=== PATIENT | female | born 1940 | race Caucasian/White ===

== ENCOUNTER 2021-03-05 09:28 | Inpatient (IN) | payer MEDICARE, MEDICAID ==
[~2021-03-05] VITALS: Ht 160 cm; Wt 47.7 kg
--- NOTE | 2021-03-05 10:00 | NUR ---
Note luke in EDM - 03/05/21 at 1055 by JAMES pt's wrist where vancomycin is running in is red and hot to touch. iv line flushed with NS. md and pharmacist informed. will run vanco in at a slower rate per pharmacy.
--- NOTE | 2021-03-05 10:15 | NUR ---
dr. guzman at bedside
[2021-03-05 10:26] LABS: CLARITY,URINE CLEAR (Clear); COLOR,URINE YELLOW (Yellow); GLUCOSE, URINE NEGATIVE (Neg); KETONES,URINE NEGATIVE (Neg); LEUKOCYTE ESTERASE ,URINE NEGATIVE (Neg); NITRITES, URINE NEGATIVE (Neg); OCCULT BLOOD,URINE NEGATIVE (Neg); PROTEIN,URINE NEGATIVE (Neg)
[2021-03-05 10:29] LABS: UA COLLECTION TYPE STRAIGHT CATH
--- NOTE | 2021-03-05 10:55 | NUR ---
pt to ct
--- NOTE | 2021-03-05 11:10 | NUR ---
returned from ct without incident
[2021-03-05 11:24] LABS: BASOPHILS % (AUTO) 0.4 % (0-1); EOSINOPHILS # (AUTO) 0.1 X10'3 (0-0.9); HEMATOCRIT 37.1 % (35.0-45.0); HEMOGLOBIN 12.7 g/dl (12.0-16.0); LYMPHOCYTES # (AUTO) 0.9 X10'3 (1.1-4.8); LYMPHOCYTES % (AUTO) 14.7 % (21-51); MEAN CORPUSCULAR HEMOGLOBIN 32.3 PG (27.0-31.0); MEAN CORPUSCULAR HGB CONC 34.4 g/dL (33.0-36.5); MEAN CORPUSCULAR VOLUME 93.8 FL (78-98); MEAN PLATELET VOLUME 8.2 FL (7.4-10.4); MONOCYTES # (AUTO) 0.5 X10'3 (0-0.9); MONOCYTES % (AUTO) 8.2 % (2-12); NEUTROPHILS # (AUTO) 4.6 X10'3 (1.8-7.7); NEUTROPHILS % (AUTO) 75.7 % (42-75); PLATELET COUNT 186 X10'3 (140-440); RED BLOOD COUNT 3.95 X10'6 (4.20-5.60); RED CELL DISTRIBUTION WIDTH 14.2 % (11.5-14.5)
--- NOTE | 2021-03-05 11:30 | NUR ---
pt moved to er bed 4 to be in direct view of nurses station. pt attempting to get out of bed.
[2021-03-05 11:38] LABS: ALANINE AMINOTRANSFERASE 42 U/L (12-78); ALBUMIN 3.7 G/DL (3.4-5.0); ALKALINE PHOSPHATASE 59 IU/L (46-116); ANION GAP 10 (8-16); ASPARTATE AMINO TRANSFERASE 36 U/L (10-37); BILIRUBIN,TOTAL 0.5 MG/DL (0.1-1.0); BLOOD UREA NITROGEN 23 MG/DL (7-18); BUN/CREATININE RATIO 30.7 (6.6-38.0); CALCIUM 9.2 MG/DL (8.5-10.1); CHLORIDE 107 MMOL/L (99-107); CREATININE 0.75 MG/DL (0.40-0.90); GLUCOSE 87 MG/DL (70-104); POTASSIUM 4.1 MMOL/L (3.5-5.1); SODIUM 144 MMOL/L (135-145); TOTAL CARBON DIOXIDE 27.1 MMOL/L (24-32); TOTAL PROTEIN 7.3 G/DL (6.4-8.2); eGFR 75 ML/MIN
[2021-03-05] MEDS ORDERED: haloperidol lactate 5mg/ml inj IM ONE (12:05)
--- NOTE | 2021-03-05 12:15 | NUR ---
pt re-oriented mult times, provided with warm blankets, repositioned for comfort.
[2021-03-05] MEDS: normal saline 1000ml 1,000 ML IV SCH (12:45)
[2021-03-05] MEDS ORDERED: ondansetron/PF 4mg/2ml inj IV PRN (12:45)
[2021-03-05] MEDS ORDERED: acetaminophen 325mg tablet PO PRN ×2 (12:45)
[2021-03-05] MEDS ORDERED: HYDROcodone/acetaminophen 5mg/325mg tablet PO PRN (12:55)
[2021-03-05] MEDS ORDERED: morphine 2 MG/ML inj. syringe IV PRN (12:55)
[2021-03-05] MEDS ORDERED: LOSA50TA64 PO (13:12)
[2021-03-05] MEDS ORDERED: DIVA125C2 PO (13:12)
[2021-03-05] MEDS ORDERED: TRAZ-256 PO (13:12)
[2021-03-05] MEDS ORDERED: OMEP20TA23 PO (13:12)
[2021-03-05] MEDS ORDERED: ATOR40TA14 PO (13:12)
[2021-03-05] MEDS ORDERED: FLUO40CA10 PO (13:12)
--- NOTE | 2021-03-05 14:28 | NUR ---
husbands phone number [phone]
--- NOTE | 2021-03-05 14:29 | NUR ---
Return page, spoke with nurse, states patient needs placement, explained there are no [facility] beds open this weekend, if patient requires LTC then there are also no beds available, patient will have to be placed out of area, patient has been admitted, will work with on discharge plan
[2021-03-05] MEDS: traZODone 50mg tablet PO SCH (17:55)
[2021-03-05] MEDS: heparin, porcine 5000 units/ml vial SQ SCH (20:00)
[2021-03-05] MEDS: divalproex sod 125mg sprinkle cap PO SCH (20:00)
[2021-03-05] MEDS ORDERED: traZODone 50mg tablet PO SCH (21:00)
[2021-03-06 09:21] LABS: BASOPHILS % (AUTO) 0.2 % (0-1); EOSINOPHILS % (AUTO) 0.4 % (0-6); HEMOGLOBIN 12.2 g/dl (12.0-16.0); LYMPHOCYTES # (AUTO) 1.6 X10'3 (1.1-4.8); LYMPHOCYTES % (AUTO) 29.1 % (21-51); MEAN CORPUSCULAR HGB CONC 33.8 g/dL (33.0-36.5); MEAN CORPUSCULAR VOLUME 94.7 FL (78-98); MEAN PLATELET VOLUME 8.4 FL (7.4-10.4); MONOCYTES # (AUTO) 0.5 X10'3 (0-0.9); MONOCYTES % (AUTO) 9.2 % (2-12); NEUTROPHILS # (AUTO) 3.3 X10'3 (1.8-7.7); NEUTROPHILS % (AUTO) 61.1 % (42-75); PLATELET COUNT 199 X10'3 (140-440); WHITE BLOOD COUNT 5.4 X10'3 (4.5-11.0)
--- NOTE | 2021-03-06 09:26 | NUR ---
there is no updtaed list for the hospitalist ,can not report the critical positive lab result to the hospitalist who has pt .
[2021-03-06 09:31] LABS: ALANINE AMINOTRANSFERASE 38 U/L (12-78); ALBUMIN 3.6 G/DL (3.4-5.0); ALBUMIN/GLOBULIN RATIO 1.1 (1.1-1.5); ALKALINE PHOSPHATASE 57 IU/L (46-116); ANION GAP 11 (8-16); ASPARTATE AMINO TRANSFERASE 42 U/L (10-37); BILIRUBIN,TOTAL 0.6 MG/DL (0.1-1.0); BLOOD UREA NITROGEN 17 MG/DL (7-18); CHLORIDE 109 MMOL/L (99-107); CREATININE 0.81 MG/DL (0.40-0.90); GLUCOSE 117 MG/DL (70-104); POTASSIUM 3.5 MMOL/L (3.5-5.1); SODIUM 145 MMOL/L (135-145); TOTAL PROTEIN 6.9 G/DL (6.4-8.2); eGFR 68 ML/MIN
--- NOTE | 2021-03-06 10:00 | NUR ---
as per mo zuniga pt has verbal order from dr guzman for nonbehav restraint .
--- NOTE | 2021-03-06 10:00 | NUR ---
pt moved from bed 4 to bed 3 .cydney dup for pt ,no report given from brad zuniga ,as per brad zuniga she does not know anything about the pt .mo charge aware ,checke dthe triage note and md report to see why the pt is being admitted.
--- NOTE | 2021-03-06 10:02 | NUR ---
notified dr thomas regarding pt positive bld culture result and informed that unknown if pt can swallow the tab? as per he will fix the meds and order iv abx for the pt .
[2021-03-06] MEDS ORDERED: hydrALAZINE 20mg/ml inj. IV PRN (10:05)
[2021-03-06] MEDS ORDERED: levetiracetam-NS 1000mg/100ml 100 ML IV ONE (10:10)
[2021-03-06] MEDS: normal saline 1000ml 1,000 ML IV SCH ×2 (10:30→18:04)
[2021-03-06] MEDS: losartan 50mg tablet PO SCH (10:38)
[2021-03-06] MEDS: divalproex sod 125mg sprinkle cap PO SCH ×2 (10:39→20:50)
[2021-03-06] MEDS: atorvastatin 20mg tablet PO SCH (10:39)
[2021-03-06] MEDS: heparin, porcine 5000 units/ml vial SQ SCH ×2 (10:40→20:51)
[2021-03-06] MEDS: pantoprazole 40mg Tablet.DR PO SCH (10:40)
[2021-03-06] MEDS: FLUoxetine 20mg capsule PO SCH (10:40)
[2021-03-06] MEDS ORDERED: VANCOmycin 1250MG/NS 250ml Bag 250 ML IV ONE (10:45)
[2021-03-06] MEDS: piperacillin/tazo 3.375gm/50ml 50 ML IV SCH (10:46)
--- NOTE | 2021-03-06 10:49 | NUR ---
notified pharmacisit christina that pt has order for zyosin and vancomycin and zyosin takes 4 hr to finish and pt has only 1 line and pt is alerted and pulls on line ,as per deloris either run zyosin in 30 mins or hold zyosin and infuse vancomycin first .will follow the orders.
--- NOTE | 2021-03-06 10:57 | NUR ---
held the zosyn at this time ,when vancyomycin is finish ,will start zosyn .
--- NOTE | 2021-03-06 13:04 | NUR ---
sbar to dr thomas ,no new orders at this time,informed that pt is on soft restraint due to confusion and agigitation and pull lines out.
[2021-03-06 20:00] VITALS: BP 146/58
[2021-03-06] MEDS: traZODone 50mg tablet PO SCH ×2 (21:00→22:06)
[2021-03-06] MEDS: levetiracetam inj 750 MG in normal saline 100ml IV soln 100 ML IV SCH (22:36)
[2021-03-07] VITALS: BP 123/40
[2021-03-07] MEDS: piperacillin/tazo 3.375gm/50ml 50 ML IV SCH ×3 (00:51→15:24)
[2021-03-07 06:33] LABS: BASOPHILS % (AUTO) 0.3 % (0-1); EOSINOPHILS % (AUTO) 0.6 % (0-6); HEMATOCRIT 33.4 % (35.0-45.0); HEMOGLOBIN 11.3 g/dl (12.0-16.0); LYMPHOCYTES # (AUTO) 1.3 X10'3 (1.1-4.8); LYMPHOCYTES % (AUTO) 21.3 % (21-51); MEAN CORPUSCULAR HEMOGLOBIN 32.1 PG (27.0-31.0); MEAN CORPUSCULAR HGB CONC 33.8 g/dL (33.0-36.5); MEAN CORPUSCULAR VOLUME 95.1 FL (78-98); MEAN PLATELET VOLUME 8.6 FL (7.4-10.4); MONOCYTES # (AUTO) 0.7 X10'3 (0-0.9); MONOCYTES % (AUTO) 12.2 % (2-12); NEUTROPHILS # (AUTO) 3.9 X10'3 (1.8-7.7); NEUTROPHILS % (AUTO) 65.6 % (42-75); PLATELET COUNT 164 X10'3 (140-440); RED BLOOD COUNT 3.52 X10'6 (4.20-5.60); RED CELL DISTRIBUTION WIDTH 14.6 % (11.5-14.5); WHITE BLOOD COUNT 5.9 X10'3 (4.5-11.0)
[2021-03-07 07:19] LABS: ALANINE AMINOTRANSFERASE 35 U/L (12-78); ALBUMIN 3.1 G/DL (3.4-5.0); ALBUMIN/GLOBULIN RATIO 1.1 (1.1-1.5); ALKALINE PHOSPHATASE 49 IU/L (46-116); ANION GAP 12 (8-16); ASPARTATE AMINO TRANSFERASE 41 U/L (10-37); BILIRUBIN,TOTAL 0.6 MG/DL (0.1-1.0); BLOOD UREA NITROGEN 16 MG/DL (7-18); BUN/CREATININE RATIO 18.4 (6.6-38.0); CALCIUM 8.5 MG/DL (8.5-10.1); CHLORIDE 112 MMOL/L (99-107); CREATININE 0.87 MG/DL (0.40-0.90); GLUCOSE 90 MG/DL (70-104); POTASSIUM 3.5 MMOL/L (3.5-5.1); SODIUM 150 MMOL/L (135-145); TOTAL CARBON DIOXIDE 26.4 MMOL/L (24-32); eGFR 63 ML/MIN
[2021-03-07 08:00] VITALS: BP 125/59
[2021-03-07] MEDS: atorvastatin 20mg tablet PO SCH ×2 (08:00→11:10)
[2021-03-07] MEDS: FLUoxetine 20mg capsule PO SCH ×2 (08:00→11:10)
[2021-03-07] MEDS: pantoprazole 40mg Tablet.DR PO SCH ×2 (08:00→11:10)
[2021-03-07] MEDS: losartan 50mg tablet PO SCH ×2 (08:00→11:11)
[2021-03-07] MEDS: divalproex sod 125mg sprinkle cap PO SCH ×3 (08:00→22:05)
[2021-03-07] MEDS: levetiracetam inj 750 MG in normal saline 100ml IV soln 100 ML IV SCH ×2 (08:29→22:05)
[2021-03-07] MEDS: heparin, porcine 5000 units/ml vial SQ SCH ×2 (08:30→22:05)
[2021-03-07] MEDS: normal saline 1000ml 1,000 ML IV SCH (08:31)
[2021-03-07] MEDS: LORazepam 2 mg/ml vial IV PRN ×2 (11:40→17:27)
[2021-03-07 12:00] VITALS: BP 104/48
[2021-03-07] MEDS ORDERED: vancomycin/NS 1 GM ADD-VANTAGE 250 ML IV SCH (12:00)
[2021-03-07] MEDS: dextrose 5%-1/4 normal saline 1,000 ML IV SCH ×2 (15:24→23:33)
[2021-03-07 21:00] VITALS: BP 149/79
[2021-03-08] VITALS: BP 149/79
[2021-03-08] MEDS: piperacillin/tazo 3.375gm/50ml 50 ML IV SCH ×2 (00:25→08:29)
[2021-03-08] MEDS: LORazepam 2 mg/ml vial IV PRN ×2 (00:58→17:33)
[2021-03-08 06:33] LABS: BASOPHILS % (AUTO) 0.3 % (0-1); EOSINOPHILS # (AUTO) 0.1 X10'3 (0-0.9); LYMPHOCYTES # (AUTO) 1.1 X10'3 (1.1-4.8); LYMPHOCYTES % (AUTO) 26.3 % (21-51); MEAN CORPUSCULAR HEMOGLOBIN 31.7 PG (27.0-31.0); MEAN CORPUSCULAR HGB CONC 33.5 g/dL (33.0-36.5); MEAN CORPUSCULAR VOLUME 94.7 FL (78-98); MEAN PLATELET VOLUME 8.4 FL (7.4-10.4); MONOCYTES # (AUTO) 0.6 X10'3 (0-0.9); MONOCYTES % (AUTO) 12.7 % (2-12); NEUTROPHILS # (AUTO) 2.6 X10'3 (1.8-7.7); NEUTROPHILS % (AUTO) 58.7 % (42-75); PLATELET COUNT 154 X10'3 (140-440); RED BLOOD COUNT 3.48 X10'6 (4.20-5.60); RED CELL DISTRIBUTION WIDTH 14.7 % (11.5-14.5); WHITE BLOOD COUNT 4.4 X10'3 (4.5-11.0)
--- NOTE | 2021-03-08 06:37 | NUR ---
Patient in room [facility]. I have received report from LAY Mclaughlin and had the opportunity to ask questions and assume patient care.
[2021-03-08 06:46] LABS: ALANINE AMINOTRANSFERASE 37 U/L (12-78); ALBUMIN 2.9 G/DL (3.4-5.0); ALKALINE PHOSPHATASE 44 IU/L (46-116); ANION GAP 10 (8-16); ASPARTATE AMINO TRANSFERASE 41 U/L (10-37); BILIRUBIN,TOTAL 0.7 MG/DL (0.1-1.0); BLOOD UREA NITROGEN 14 MG/DL (7-18); BUN/CREATININE RATIO 16.7 (6.6-38.0); CALCIUM 8.3 MG/DL (8.5-10.1); CHLORIDE 111 MMOL/L (99-107); CREATININE 0.84 MG/DL (0.40-0.90); GLUCOSE 104 MG/DL (70-104); SODIUM 147 MMOL/L (135-145); TOTAL CARBON DIOXIDE 25.7 MMOL/L (24-32); TOTAL PROTEIN 5.7 G/DL (6.4-8.2); eGFR 65 ML/MIN
[2021-03-08 06:54] LABS: POTASSIUM 2.9 MMOL/L (3.5-5.1)
[2021-03-08 07:00] VITALS: BP 129/65
[2021-03-08] MEDS ORDERED: magnesium Cl slow-release 64mg tablet PO PRN (07:00)
[2021-03-08] MEDS ORDERED: magnesium 2GM in 50ml NS 50 ML IV PRN (07:00)
[2021-03-08] MEDS ORDERED: potassium Cl 20 mEq SR tablet PO PRN ×2 (07:00)
[2021-03-08] MEDS ORDERED: magnesium 4gm in 100ml NS 100 ML IV PRN (07:00)
[2021-03-08] MEDS: levetiracetam inj 750 MG in normal saline 100ml IV soln 100 ML IV SCH ×2 (07:16→19:33)
[2021-03-08] MEDS: heparin, porcine 5000 units/ml vial SQ SCH ×2 (07:17→19:35)
[2021-03-08] MEDS: FLUoxetine 20mg capsule PO SCH (07:27)
[2021-03-08] MEDS: divalproex sod 125mg sprinkle cap PO SCH ×2 (07:27→19:33)
[2021-03-08] MEDS: losartan 50mg tablet PO SCH (07:27)
[2021-03-08] MEDS: K and/or MAG REPLACEMENT MC SCH ×2 (08:00→20:06)
[2021-03-08 08:19] LABS: MAGNESIUM 1.8 MG/DL (1.5-2.4)
[2021-03-08] MEDS: potassium CL 10mEq/100ml bag 100 ML IV PRN ×6 (08:30→20:49)
[2021-03-08 11:49] VITALS: BP 138/63
[2021-03-08] MEDS: dextrose 5%-1/4 normal saline 1,000 ML IV SCH (12:55)
--- NOTE | 2021-03-08 14:10 | NUR ---
PAGER ID: [phone] MESSAGE: [phone]- Dilcia Herr- ok to renew restraints use? attempting to pull at lines and kicking sitter. Thank you- Giovani [phone]
[2021-03-08 18:00] VITALS: BP 135/52
--- NOTE | 2021-03-08 18:25 | NUR ---
Problems reprioritized. Patient report given, questions answered & plan of care reviewed with LAY Mclaughlin.
[2021-03-08 23:39] VITALS: BP 151/46
[2021-03-09] MEDS: potassium CL 10mEq/100ml bag 100 ML IV PRN ×2 (00:50→02:12)
[2021-03-09] MEDS: LORazepam 2 mg/ml vial IV PRN ×3 (01:44→18:21)
[2021-03-09] MEDS: hydrOXYzine 10 MG tablet PO PRN ×2 (02:23→19:12)
[2021-03-09] MEDS: dextrose 5%-1/4 normal saline 1,000 ML IV SCH ×2 (04:09→10:31)
--- NOTE | 2021-03-09 06:30 | NUR ---
Report given to Giovani
--- NOTE | 2021-03-09 06:35 | NUR ---
Patient in room [facility]. I have received report from LAY Medel and had the opportunity to ask questions and assume patient care.
[2021-03-09 07:00] VITALS: BP 130/63
[2021-03-09 07:02] LABS: BASOPHILS % (AUTO) 0.4 % (0-1); EOSINOPHILS % (AUTO) 0.4 % (0-6); HEMOGLOBIN 11.9 g/dl (12.0-16.0); LYMPHOCYTES # (AUTO) 1.3 X10'3 (1.1-4.8); LYMPHOCYTES % (AUTO) 21.6 % (21-51); MEAN CORPUSCULAR HEMOGLOBIN 32.2 PG (27.0-31.0); MEAN CORPUSCULAR VOLUME 94.8 FL (78-98); MEAN PLATELET VOLUME 8.7 FL (7.4-10.4); MONOCYTES # (AUTO) 0.6 X10'3 (0-0.9); MONOCYTES % (AUTO) 9.8 % (2-12); NEUTROPHILS # (AUTO) 4.1 X10'3 (1.8-7.7); NEUTROPHILS % (AUTO) 67.8 % (42-75); PLATELET COUNT 182 X10'3 (140-440); RED BLOOD COUNT 3.69 X10'6 (4.20-5.60); RED CELL DISTRIBUTION WIDTH 14.2 % (11.5-14.5)
[2021-03-09 07:24] LABS: ALANINE AMINOTRANSFERASE 39 U/L (12-78); ALBUMIN 3.1 G/DL (3.4-5.0); ALKALINE PHOSPHATASE 47 IU/L (46-116); ANION GAP 10 (8-16); ASPARTATE AMINO TRANSFERASE 39 U/L (10-37); BILIRUBIN,TOTAL 0.6 MG/DL (0.1-1.0); BLOOD UREA NITROGEN 7 MG/DL (7-18); BUN/CREATININE RATIO 9.9 (6.6-38.0); CALCIUM 8.9 MG/DL (8.5-10.1); CHLORIDE 108 MMOL/L (99-107); CREATININE 0.71 MG/DL (0.40-0.90); GLUCOSE 106 MG/DL (70-104); MAGNESIUM 1.8 MG/DL (1.5-2.4); SODIUM 143 MMOL/L (135-145); TOTAL CARBON DIOXIDE 24.6 MMOL/L (24-32); TOTAL PROTEIN 6.2 G/DL (6.4-8.2); eGFR 79 ML/MIN
[2021-03-09] MEDS: divalproex sod 125mg sprinkle cap PO SCH ×3 (08:00→19:12)
[2021-03-09] MEDS: losartan 50mg tablet PO SCH (08:00)
[2021-03-09] MEDS: FLUoxetine 20mg capsule PO SCH ×2 (08:00→08:25)
[2021-03-09] MEDS: heparin, porcine 5000 units/ml vial SQ SCH ×2 (08:00→19:12)
[2021-03-09] MEDS: K and/or MAG REPLACEMENT MC SCH ×2 (08:00→19:13)
[2021-03-09] MEDS: levetiracetam inj 750 MG in normal saline 100ml IV soln 100 ML IV SCH ×2 (08:31→19:11)
--- NOTE | 2021-03-09 09:12 | NUR ---
Patient agitated when repositioning and also providing william care. Patient grabbing, pulling, yelling, kicking at staff. Ativan given as ordered. Sitter at bedside and soft BUE restraints on. Will continue to monitor.
[2021-03-09 11:20] VITALS: BP 138/59
[2021-03-09] MEDS ORDERED: VANCOMYCIN LEVEL IV ONE (11:30)
--- NOTE | 2021-03-09 14:21 | NUR ---
Patient's spouse Anthony in to see patient. Patient trying to climb out of bed, cussing and yelling at this RN to "get out." Anthony asked if patient had taken her morning meds and it was explained to him that patient had refused meds, spitting and kicking staff not wanting to take.
[2021-03-09 18:00] VITALS: BP 147/75
--- NOTE | 2021-03-09 18:40 | NUR ---
Problems reprioritized. Patient report given, questions answered & plan of care reviewed with LAY ribeiro.
[2021-03-10] VITALS: BP 131/61
[2021-03-10] MEDS: dextrose 5%-1/4 normal saline 1,000 ML IV SCH ×2 (01:45→21:46)
[2021-03-10 06:42] LABS: BASOPHILS % (AUTO) 0.5 % (0-1); EOSINOPHILS # (AUTO) 0.1 X10'3 (0-0.9); HEMOGLOBIN 12.1 g/dl (12.0-16.0); LYMPHOCYTES # (AUTO) 2.2 X10'3 (1.1-4.8); LYMPHOCYTES % (AUTO) 39.9 % (21-51); MEAN CORPUSCULAR HEMOGLOBIN 31.9 PG (27.0-31.0); MEAN CORPUSCULAR HGB CONC 33.7 g/dL (33.0-36.5); MEAN CORPUSCULAR VOLUME 94.6 FL (78-98); MEAN PLATELET VOLUME 9.3 FL (7.4-10.4); MONOCYTES # (AUTO) 0.7 X10'3 (0-0.9); MONOCYTES % (AUTO) 12.9 % (2-12); NEUTROPHILS # (AUTO) 2.5 X10'3 (1.8-7.7); NEUTROPHILS % (AUTO) 44.7 % (42-75); PLATELET COUNT 188 X10'3 (140-440); RED BLOOD COUNT 3.81 X10'6 (4.20-5.60); RED CELL DISTRIBUTION WIDTH 14.8 % (11.5-14.5); WHITE BLOOD COUNT 5.5 X10'3 (4.5-11.0)
--- NOTE | 2021-03-10 06:44 | NUR ---
Report given to LAY Aguiar
[2021-03-10 07:03] LABS: ALANINE AMINOTRANSFERASE 33 U/L (12-78); ALBUMIN 3.1 G/DL (3.4-5.0); ALKALINE PHOSPHATASE 47 IU/L (46-116); ANION GAP 9 (8-16); ASPARTATE AMINO TRANSFERASE 35 U/L (10-37); BILIRUBIN,TOTAL 0.6 MG/DL (0.1-1.0); BLOOD UREA NITROGEN 5 MG/DL (7-18); BUN/CREATININE RATIO 7.8 (6.6-38.0); CALCIUM 8.7 MG/DL (8.5-10.1); CHLORIDE 110 MMOL/L (99-107); CREATININE 0.64 MG/DL (0.40-0.90); GLUCOSE 98 MG/DL (70-104); MAGNESIUM 1.7 MG/DL (1.5-2.4); POTASSIUM 3.9 MMOL/L (3.5-5.1); SODIUM 143 MMOL/L (135-145); TOTAL CARBON DIOXIDE 24.2 MMOL/L (24-32); TOTAL PROTEIN 6.1 G/DL (6.4-8.2); eGFR 90 ML/MIN
[2021-03-10 08:00] VITALS: BP 149/59
[2021-03-10] MEDS: divalproex sod 125mg sprinkle cap PO SCH ×2 (08:00→19:50)
[2021-03-10] MEDS: FLUoxetine 20mg capsule PO SCH (08:00)
[2021-03-10] MEDS: heparin, porcine 5000 units/ml vial SQ SCH ×2 (08:00→19:51)
[2021-03-10] MEDS: K and/or MAG REPLACEMENT MC SCH ×2 (08:00→19:49)
[2021-03-10] MEDS: losartan 50mg tablet PO SCH (08:00)
[2021-03-10] MEDS: LORazepam 2 mg/ml vial IV PRN ×2 (10:05→15:54)
[2021-03-10] MEDS: levetiracetam inj 750 MG in normal saline 100ml IV soln 100 ML IV SCH ×2 (10:05→19:48)
--- NOTE | 2021-03-10 11:30 | NUR ---
Initial: Pt admitted w/ ALOC, severe dementia and failure to thrive per EMR. Pt noted to be A&O x 1 and confused and combative at times, also in restraints. Currently on Heart healthy diet though w/ mostly refusal of meals though some 25-50%. Recommend Ensure Enlive TID as well as assistance w/ meals given mental status and restraints. Pt did not appear to have significant facial wasting when observed at bedside, though did appear thin. Current wt not scaled and no wt hx in EMR. No edema noted. Pt also receiving D5 1/4NS at 70ml/hr providing 285kcals/day. LBM 03/09. Will continue to monitor. Recs: 1. Liberalize to Regular diet given no significant cardiac hx 2. Ensure Enlive TID; pending MD verification 3. Bowel care per rx 4. Scaled wt Addendum: 03/10/21 at [address] Amended: Links added.
[2021-03-10] MEDS: lactose-reduced food (Ensure Enlive) - 237ml bottle PO SCH ×2 (13:00→18:00)
[2021-03-10] MEDS ORDERED: hydrOXYzine 10MG/5ML oral syrup 120ml PO PRN (15:40)
--- NOTE | 2021-03-10 16:02 | NUR ---
[phone] MESSAGE: ethan, If possible would you mind coming to see [place]/Nemesio I gave Ativan but she is so agitated and anxious shes going to give herself a heart attack Stefania ext [phone]
[2021-03-10] MEDS: OLANZapine **IM** 10 mg inj. IM PRN (17:15)
[2021-03-11] VITALS: BP 120/56
--- NOTE | 2021-03-11 06:38 | NUR ---
Report given to RNStefania
[2021-03-11] MEDS: FLUoxetine 20mg capsule PO SCH (08:00)
[2021-03-11] MEDS: divalproex sod 125mg sprinkle cap PO SCH ×2 (08:00→19:55)
[2021-03-11] MEDS: lactose-reduced food (Ensure Enlive) - 237ml bottle PO SCH ×3 (08:00→18:00)
[2021-03-11] MEDS: K and/or MAG REPLACEMENT MC SCH ×2 (08:00→19:36)
[2021-03-11] MEDS: losartan 50mg tablet PO SCH (08:00)
[2021-03-11] MEDS: heparin, porcine 5000 units/ml vial SQ SCH ×2 (08:00→19:51)
[2021-03-11] MEDS: levetiracetam inj 750 MG in normal saline 100ml IV soln 100 ML IV SCH ×2 (08:00→19:51)
[2021-03-11] MEDS: OLANZapine **IM** 10 mg inj. IM PRN (08:53)
[2021-03-11] MEDS: dextrose 5%-1/4 normal saline 1,000 ML IV SCH (11:09)
[2021-03-11] MEDS: LORazepam 2 mg/ml vial IV PRN ×2 (11:55→13:11)
[2021-03-11] MEDS ORDERED: OLANZapine **IM** 10 mg inj. IM PRN (14:25)
[2021-03-11] MEDS: haloperidol lactate 5mg/ml inj IM PRN (17:14)
[2021-03-11 18:00] VITALS: BP 146/56
--- NOTE | 2021-03-11 19:10 | NUR ---
Patient in room [facility]. I have received report from Stefania CHUN and had the opportunity to ask questions and assume patient care.
--- NOTE | 2021-03-11 19:23 | NUR ---
Patient in room [facility]. I have received report from SONAM CHUN and had the opportunity to ask questions and assume patient care.
[2021-03-12] VITALS: BP 129/58
[2021-03-12] MEDS: dextrose 5%-1/4 normal saline 1,000 ML IV SCH (05:04)
--- NOTE | 2021-03-12 06:30 | NUR ---
Problems reprioritized. Patient report given, questions answered & plan of care reviewed with Stefania CHUN.
[2021-03-12 06:38] LABS: MAGNESIUM 1.7 MG/DL (1.5-2.4); POTASSIUM 3.1 MMOL/L (3.5-5.1)
--- NOTE | 2021-03-12 07:39 | NUR ---
[id number] MESSAGE: Good Morning Doctor/Sir re: 354B/Herr Patients potassium is 3.1 today and replacement is . She wont take it PO and K-rider she wont handle unless infused super slow. Can we do NS+ K+ or will that not be enough Stefania CHUN, MSN [phone]
[2021-03-12] MEDS: FLUoxetine 20mg capsule PO SCH (08:00)
[2021-03-12] MEDS: divalproex sod 125mg sprinkle cap PO SCH ×2 (08:00→20:00)
[2021-03-12] MEDS: lactose-reduced food (Ensure Enlive) - 237ml bottle PO SCH ×3 (08:00→18:00)
[2021-03-12] MEDS: losartan 50mg tablet PO SCH (08:00)
[2021-03-12] MEDS: heparin, porcine 5000 units/ml vial SQ SCH ×2 (08:00→20:00)
[2021-03-12] MEDS: haloperidol lactate 5mg/ml inj IM PRN (08:13)
[2021-03-12] MEDS: levetiracetam inj 750 MG in normal saline 100ml IV soln 100 ML IV SCH ×2 (08:20→20:01)
[2021-03-12] MEDS: K and/or MAG REPLACEMENT MC SCH ×2 (08:21→20:00)
[2021-03-12] MEDS: LORazepam 2 mg/ml vial IV PRN (11:11)
--- NOTE | 2021-03-12 11:16 | NUR ---
ADMINISTERED HALDOL @ 800AM AND HAD TO ADMINISTER ATIVAN DUT TO PATIENT BEING EXTREMELY AGITATED AND ANXIOUS. SHE CONTIMUOUS TO KICK , BITE, SCREAM, SHE IS IN RESTRAINTS AND DOCTOR IS AWARE OF BEHAVIOR.PATIENT ALSO CONTINUES TO REFUSE ANYTHING BY MOUTH. NO NUTRIENTS ARE BEING ADMINISTERED. DIETARY WAS MADE AWARE YESTERDAY
--- NOTE | 2021-03-12 11:58 | NUR ---
called and gave disability case manager Lore josé from [employer] . he requested that we send H&P to [facility] [phone] via [employer]
[2021-03-12] MEDS ORDERED: ziprasidone IM 20mg inj **IM only IM PRN (12:10)
[2021-03-12] MEDS ORDERED: LORazepam 2 mg/ml vial IV PRN (13:10)
[2021-03-12] MEDS ORDERED: acetaminophen 325mg tablet PO PRN (13:10)
[2021-03-12 18:00] VITALS: BP 148/64
--- NOTE | 2021-03-12 18:50 | NUR ---
[id number] MESSAGE: if you're still here, please renew restraint order for 354B/Nemesio and thank you for all of your support today I really appreciate you Stefania RN, MSN ext [phone]
--- NOTE | 2021-03-12 18:53 | NUR ---
Patient in room [facility]. I have received report from SONAM CHUN and had the opportunity to ask questions and assume patient care.
[2021-03-12] MEDS: docusate sod 100mg capsule PO SCH (20:00)
[2021-03-12] MEDS: sennosides/docusate sodium tablet PO SCH (20:00)
--- NOTE | 2021-03-12 20:30 | NUR ---
pt laying in bed, no longing pulling at IV. IVF discontinue with pt's code status changing to DNR with comfort care. will continue to monitor. Addendum: 03/13/21 at 0028 by Kristen Santa RN Amended: Links added.
--- NOTE | 2021-03-13 06:17 | NUR ---
Problems reprioritized. Patient report given, questions answered & plan of care reviewed with Stefania CHUN.
[2021-03-13] MEDS: levetiracetam inj 750 MG in normal saline 100ml IV soln 100 ML IV SCH (07:30)
[2021-03-13] MEDS: haloperidol lactate 5mg/ml inj IM PRN (07:31)
[2021-03-13] MEDS: K and/or MAG REPLACEMENT MC SCH (08:00)
[2021-03-13] MEDS: docusate sod 100mg capsule PO SCH ×2 (08:00→18:34)
[2021-03-13] MEDS: sennosides/docusate sodium tablet PO SCH ×2 (08:00→18:34)
[2021-03-13] MEDS: heparin, porcine 5000 units/ml vial SQ SCH ×2 (08:00→18:36)
[2021-03-13] MEDS: FLUoxetine 20mg capsule PO SCH (08:00)
[2021-03-13] MEDS: losartan 50mg tablet PO SCH (08:00)
[2021-03-13] MEDS: lactose-reduced food (Ensure Enlive) - 237ml bottle PO SCH ×3 (08:00→18:00)
[2021-03-13] MEDS: divalproex sod 125mg sprinkle cap PO SCH ×2 (08:00→18:34)
[2021-03-13] MEDS: diphenhydrAMINE 50 mg/ml inj IV PRN ×2 (09:12→17:04)
--- NOTE | 2021-03-13 10:41 | NUR ---
Reassessment: Noted pt made DNR w/ comfort care, refusing everything and not opening mouth per RN. D/w RN recommendation to d/c Ensure Enlive if MD agreeable. Will continue to monitor. Recs: 1. Bowel care per PRN 2. Ensure Enlive TID; d/c if MD agreeable Addendum: 03/13/21 at [address] Amended: Links added.
[2021-03-13 12:00] VITALS: BP 123/71
[2021-03-13] MEDS: LORazepam 2 mg/ml vial IV PRN (19:41)
[2021-03-13 20:00] VITALS: BP 159/50
[2021-03-14] VITALS: BP 160/51
[2021-03-14] MEDS: LORazepam 2 mg/ml vial IV PRN (03:20)
--- NOTE | 2021-03-14 06:31 | NUR ---
Patient in room [facility] 354. I have received report from LAY Chanel and had the opportunity to ask questions and assume patient care.
--- NOTE | 2021-03-14 06:35 | NUR ---
Problems reprioritized. Patient report given, questions answered & plan of care reviewed with RASHAAD. Addendum: 03/14/21 at 0636 by Bib Pozo RN Amended: Links added.
[2021-03-14 07:38] VITALS: BP 160/50
[2021-03-14] MEDS: docusate sod 100mg capsule PO SCH ×2 (08:00→20:00)
[2021-03-14] MEDS: losartan 50mg tablet PO SCH (08:00)
[2021-03-14] MEDS: lactose-reduced food (Ensure Enlive) - 237ml bottle PO SCH ×3 (08:00→18:30)
[2021-03-14] MEDS: heparin, porcine 5000 units/ml vial SQ SCH ×2 (08:00→20:00)
[2021-03-14] MEDS: divalproex sod 125mg sprinkle cap PO SCH ×2 (08:00→20:00)
[2021-03-14] MEDS: sennosides/docusate sodium tablet PO SCH ×2 (08:00→20:00)
[2021-03-14] MEDS: FLUoxetine 20mg capsule PO SCH (08:00)
[2021-03-14] MEDS: morphine 10mg/0.5ml (conc. morphine) oral syringe PO PRN (08:31)
[2021-03-14] MEDS: hydrOXYzine 10 MG tablet PO PRN (08:55)
--- NOTE | 2021-03-14 13:05 | NUR ---
Patient appears to be resting comfortably with eyes closed and respirations even and unlabored. Restraints continue to be off of patient. Sitter is at bedside. Will continue to monitor.
--- NOTE | 2021-03-14 18:35 | NUR ---
Problems reprioritized. Patient report given, questions answered & plan of care reviewed with LAY Garcia.
--- NOTE | 2021-03-14 18:40 | NUR ---
Patient in room [facility] 354. I have received report from RASHAAD CHUN and had the opportunity to ask questions and assume patient care.
[2021-03-14 19:00] VITALS: BP 147/55
[2021-03-15] MEDS: morphine 10mg/0.5ml (conc. morphine) oral syringe PO PRN ×5 (03:16→21:50)
--- NOTE | 2021-03-15 06:03 | NUR ---
Problems reprioritized. Patient report given, questions answered & plan of care reviewed with RASHAAD CHUN.
--- NOTE | 2021-03-15 06:04 | NUR ---
Patient in room [facility]. I have received report from LAY Morris and had the opportunity to ask questions and assume patient care.
[2021-03-15 07:18] VITALS: BP 141/66
[2021-03-15] MEDS: docusate sod 100mg capsule PO SCH ×2 (08:00→20:00)
[2021-03-15] MEDS: sennosides/docusate sodium tablet PO SCH ×2 (08:00→20:00)
[2021-03-15] MEDS: heparin, porcine 5000 units/ml vial SQ SCH ×2 (08:00→20:00)
[2021-03-15] MEDS: losartan 50mg tablet PO SCH (08:00)
[2021-03-15] MEDS: FLUoxetine 20mg capsule PO SCH (08:00)
[2021-03-15] MEDS: divalproex sod 125mg sprinkle cap PO SCH ×2 (08:00→20:00)
[2021-03-15] MEDS: lactose-reduced food (Ensure Enlive) - 237ml bottle PO SCH ×3 (08:00→18:00)
[2021-03-15] MEDS: hydrOXYzine 10 MG tablet PO PRN ×2 (08:23→16:33)
--- NOTE | 2021-03-15 08:37 | NUR ---
Patient combative. Grabbing, scratching, attempting to punch and kick, spit and cuss at staff. Soft restraint to left arm reapplied. Sitter at bedside. Morphine for pain when turning and repositioning and atarax for agitation as ordered. Will continue to monitor.
--- NOTE | 2021-03-15 08:51 | NUR ---
Patient calm, resting with eyes opened, respirations even and unlabored. Restraint released. Sitter at bedside. Will continue to monitor.
[2021-03-15] MEDS: haloperidol lactate 5mg/ml inj IM PRN (14:14)
[2021-03-15] MEDS ORDERED: LORazepam 1 MG tablet PO PRN ×2 (18:10)
--- NOTE | 2021-03-15 18:12 | NUR ---
Problems reprioritized. Patient report given, questions answered & plan of care reviewed with LAY Morris.
--- NOTE | 2021-03-15 18:30 | NUR ---
Patient in room [facility] 354. I have received report from RASHAAD CHUN and had the opportunity to ask questions and assume patient care.
[2021-03-15 20:00] VITALS: BP 140/44
[2021-03-16] MEDS: morphine 10mg/0.5ml (conc. morphine) oral syringe PO PRN ×4 (04:53→16:06)
[2021-03-16] MEDS: hydrOXYzine 10 MG tablet PO PRN (05:05)
--- NOTE | 2021-03-16 06:14 | NUR ---
Problems reprioritized. Patient report given, questions answered & plan of care reviewed with RASHAAD CHUN.
--- NOTE | 2021-03-16 06:18 | NUR ---
Patient in room [facility]. I have received report from LAY Morris and had the opportunity to ask questions and assume patient care.
[2021-03-16 06:45] VITALS: BP 153/68
[2021-03-16] MEDS: sennosides/docusate sodium tablet PO SCH ×2 (08:00→20:00)
[2021-03-16] MEDS: heparin, porcine 5000 units/ml vial SQ SCH ×2 (08:00→20:00)
[2021-03-16] MEDS: losartan 50mg tablet PO SCH (08:00)
[2021-03-16] MEDS: FLUoxetine 20mg capsule PO SCH (08:00)
[2021-03-16] MEDS: docusate sod 100mg capsule PO SCH ×2 (08:00→20:00)
[2021-03-16] MEDS: lactose-reduced food (Ensure Enlive) - 237ml bottle PO SCH ×3 (08:00→18:00)
[2021-03-16] MEDS: divalproex sod 125mg sprinkle cap PO SCH ×2 (08:00→20:00)
[2021-03-16 18:00] VITALS: BP 151/71
--- NOTE | 2021-03-16 19:05 | NUR ---
Problems reprioritized. Patient report given, questions answered & plan of care reviewed with LAY Park..
[2021-03-17] MEDS: morphine 10mg/0.5ml (conc. morphine) oral syringe PO PRN (00:14)
[2021-03-17] MEDS: morphine 10mg/ml inj. IV PRN ×5 (01:53→15:40)
--- NOTE | 2021-03-17 06:17 | NUR ---
Patient in room [facility]. I have received report from [facility] and had the opportunity to ask questions and assume patient care.
[2021-03-17 07:00] VITALS: BP 154/64
--- NOTE | 2021-03-17 18:28 | NUR ---
Problems reprioritized. Patient report given, questions answered & plan of care reviewed with Radha.
[2021-03-18] VITALS: BP 147/86
[2021-03-18] MEDS: morphine 10mg/ml inj. IV PRN ×5 (00:19→17:51)
[2021-03-18 06:08] VITALS: BP 148/84
--- NOTE | 2021-03-18 06:13 | NUR ---
Report given to Nicolasa CHUN
--- NOTE | 2021-03-18 07:02 | NUR ---
Patient in room [facility]. I have received report from Radha and had the opportunity to ask questions and assume patient care.
[2021-03-18 08:00] VITALS: BP 135/87
[2021-03-18] MEDS: LORazepam 2 mg/ml vial IV PRN ×2 (10:12→12:32)
--- NOTE | 2021-03-18 13:16 | NUR ---
PRESSURE ULCER EDUCATION: DEFINITION: A pressure ulcer is an area of skin that breaks down when you stay in one position too long. The constant pressure against the skin reduces the blood flow to that area and the affected tissue dies. CAUSES: "Being bedridden or in a wheelchair "Fragile skin "Having a chronic condition, such as diabetes or vascular disease "Inability to move certain parts of your body without assistance "Older age "Incontinence of urine or stool SYMPTOMS: "A reddened area that DOES NOT turn white when pressed on - this can be the beginning of a pressure ulcer "A blister, deep sore or a crater - these can be advanced pressure ulcers FIRST AID: "Relieve the pressure on this area "Keep the area clean and dry "Call your primary doctor if you see any of the above symptoms "DO NOT massage the area "DO NOT use a donut shaped or ring shaped pillow- these actually interfere with the blood flow and cause complications PREVENTION: "Check for pressure ulcers everyday "Change position at least every two hours to relieve pressure "Use items that help relieve pressure- pillows, sheepskin, foam padding, and powders. "Keep skin clean and dry "Eat healthy well balanced meals "Exercise daily IF YOU SEE ANY OF THESE SYMPTOMS WHILE IN THE HOSPITAL - TELL YOUR NURSE IMMEDIATELY. IF YOU SEE ANY OF THESE SYMPTOMS WHILE AT HOME OR HAVE ANY QUESTIONS OR CONCERNS ABOUT PRESSURE ULCERS - CALL YOUR PRIMARY DOCTOR IMMEDIATELY. Addendum: 03/18/21 at 1316 by Jenny Rand RN Amended: Links added.
[2021-03-18 18:00] VITALS: BP 133/64
--- NOTE | 2021-03-18 18:17 | NUR ---
Problems reprioritized. Patient report given, questions answered & plan of care reviewed with Radha.
[2021-03-19] MEDS: morphine 10mg/ml inj. IV PRN ×6 (05:01→17:43)
--- NOTE | 2021-03-19 06:32 | NUR ---
Patient in room [facility]. I have received report from Radha and had the opportunity to ask questions and assume patient care.
--- NOTE | 2021-03-19 06:40 | NUR ---
Report given,questions answered and plan of care reviewed with Dash CHUN
[2021-03-19] MEDS: LORazepam 2 mg/ml vial IV PRN ×4 (07:08→17:42)
--- NOTE | 2021-03-19 18:32 | NUR ---
Problems reprioritized. Patient report given, questions answered & plan of care reviewed with
[2021-03-20] MEDS: morphine 10mg/ml inj. IV PRN ×3 (01:46→12:41)
--- NOTE | 2021-03-20 06:09 | NUR ---
Problems reprioritized. Patient report given, questions answered & plan of care reviewed with LAY Cantu.
--- NOTE | 2021-03-20 07:15 | NUR ---
Patient in room [facility]. I have received report from Domi CHUN and had the opportunity to ask questions and assume patient care.
[2021-03-20 08:00] VITALS: BP 89/50
[2021-03-20 13:05] VITALS: BP 130/61
--- NOTE | 2021-03-20 13:35 | NUR ---
Reassessment: Pt continues to be DNR w/ comfort care, will continue to monitor. Recs: 1. Bowel care per PRN Addendum: 03/20/21 at [address] Amended: Links added.
--- NOTE | 2021-03-20 14:08 | NUR ---
RN IS TO DOCUMENT YES TO ALL APPLICABLE AREAS Pronouncement of : [place] Pizano RN 1. Time Physician Notified: 0 2. Date of :03/20/21 3. Time of : 1329 4. DNR/Withdraw life support documented:Y 5. Monitor strip has been placed on chart:Y 6. Assessment process is of one-minute duration and includes following criteria: a) Patient is unresponsive to all stimuli: Y b) Pupils fixed and non-reactive:Y c) Auscultation of precordium reveals absence of heart tones:Y d) Auscultation of lungs reveals absence of breath sounds:Y e) Absence of blood pressure / all vital signs:Y f) QRS complexes are not present on monitor / EKG strip:Y g) Pacer spikes without capture:N/A 4. Comments: Patient , notified, family notified of patient expiration. Rings removed and placed in marked belongings bag for family, IV taken out after pronouncement.
== END 2021-03-20 16:25 | DRG 70 ==
LOC: ER 09:28 → UNDOADMOB 12:47 → ED HOLD 12:47 → EDBEDREQ 03-06 18:16 → SUR 3N 03-06 19:15
PROVIDERS: ADMIT Family Medicine; ATTEND Family Medicine
DX: G93.40 Encephalopathy, unspecified (principal); E43 Unspecified severe protein-calorie malnutrition; F02.81 Dementia in other diseases classified elsewhere, unspecified severity, with behavioral disturbance; S22.41XA Multiple fractures of ribs, right side, initial encounter for closed fracture; E87.1 Hypo-osmolality and hyponatremia; Z68.1 Body mass index [BMI] 19.9 or less, adult; R78.81 Bacteremia; F05 Delirium due to known physiological condition; E87.0 Hyperosmolality and hypernatremia; Z66 Do not resuscitate; G30.9 Alzheimer's disease, unspecified; R62.7 Adult failure to thrive; X58.XXXA Exposure to other specified factors, initial encounter; K21.9 Gastro-esophageal reflux disease without esophagitis; E78.5 Hyperlipidemia, unspecified; F32.A Depression, unspecified; I10 Essential (primary) hypertension; E87.6 Hypokalemia; Z51.5 Encounter for palliative care; Z78.1 Physical restraint status; Y93.89 Activity, other specified; Y92.89 Other specified places as the place of occurrence of the external cause; Y99.8 Other external cause status
CPT/HCPCS: 36415; 71045; 80053; 81003; 83605; 83735; 84132; 84484; 85025; 87040; 87077; 87081; 87088; 87186; 93005; 97530; 99285; G0378; J1200; J1630; J1644; J1953; J2060; J2270; J2274; J2543; J3370; J3480; J3486; J3490; J7030; J7042